=== PATIENT | male | born 1955 | race American Indian/Alaskan Native ===

== ENCOUNTER 2016-07-20 17:50 | Emergency (ER) | payer BC ==
[2016-07-20 18:30] LABS: Hematocrit 37.5 % (35.5-45.6); Hemoglobin 11.8 gm/dl (11.8-15.2); Mean Corpuscular HGB Conc 32 % (32-34); Mean Corpuscular Volume 71 fl (84-94); Red Blood Count 5.31 M/mm3 (3.65-5.03); Red Cell Distribution Width 16.3 % (13.2-15.2); White Blood Count 6.2 K/mm3 (4.5-11.0)
[2016-07-20 18:32] LABS: Mean Corpuscular Hemoglobin 22 pg (28-32)
[2016-07-20 18:40] LABS: Bilirubin,Urine NEG (Negative); Blood,Urine NEG (Negative); Ketones,Urine NEG (Negative); Leukocyte Esterase,Urine NEG (Negative); Mucus,Urine FEW /HPF; Nitrite,Urine NEG (Negative); Protein,Urine <15 mg/dL mg/dL (Negative)
[2016-07-20 18:51] LABS: Anion Gap 15 mmol/L; BUN/Creatinine Ratio 13.63; Blood Urea Nitrogen 15 mg/dL (9-20); Calcium 8.5 mg/dL (8.4-10.2); Carbon Dioxide 23 mmol/L (22-30); Chloride 103.8 mmol/L (98-107); Glucose 122 mg/dL (75-100); Potassium 4.1 mmol/L (3.6-5.0); Sodium 138 mmol/L (137-145)
[2016-07-20 18:58] LABS: Platelet Count 129 K/mm3 (140-440)
[2016-07-20] MEDS ORDERED: MORPHINE IV ONE (21:18)
[2016-07-20] MEDS ORDERED: VALIUM IV ONE (21:18)
--- NOTE | 2016-07-20 21:54 | Emergency Department Report ---
HPI - General Chief Complaint: Back Pain/Injury Time Seen by Provider: 07/20/16 19:51 - HPI HPI: The patient is a 61-year-old male who presents for evaluation of back pain. The patient has a history of chronic back pain for greater than the past 10 years. The patient reports recurrence of his back pain one week ago, concentrated to the right lower back, 9/10 in severity, aching in quality, exacerbated with standing up or bending over. The patient denies trauma to the back prior to onset of his symptoms 1 week ago, fall, fever, chills, night sweats, saddle anesthesia, paresthesias, numbness or tingling in the legs, leg weakness, urine or bowel incontinence or retention, difficulty ambulating, or other focal neurological deficits. ED Past Medical Hx - Past Medical History Previous Medical History?: No - Surgical History Additional Surgical History: L-5,L6 fusion - Social History Smoking Status: Never Smoker Substance Use Type: None - Medications Home Medications: Home Medications Medication Instructions Recorded Confirmed Last Taken Type HYDROcodone/APAP 7.5-325 [[place] 1 each PO Q8HR PRN #12 tablet 07/20/16 Unknown Rx 7.5-325 mg TAB] Ibuprofen [Motrin] 800 mg PO Q8HR PRN #15 tablet 07/20/16 Unknown Rx ED Review of Systems ROS: Stated complaint: LOWER FLANK PAIN Other details as noted in HPI Constitutional: denies: fever ENT: denies: throat or neck pain Respiratory: denies: cough, shortness of breath Cardiovascular: denies: chest pain Endocrine: denies unexplained weight loss or gain Gastrointestinal: denies: abdominal pain, nausea Genitourinary: denies: dysuria Musculoskeletal: reports back pain denies: leg swelling Skin: denies: rash Neurological: denies: headache Hematological/Lymphatic: denies: easy bleeding or easy bruising Psych: denies sadness or hopelessness Physical Exam - Physical Exam Vital Signs: Vital Signs 07/20/16 18:10 Temperature 97.8 F Pulse Rate 83 Respiratory 20 Rate Blood Pressure 151/90 O2 Sat by Pulse 98 Oximetry Physical Exam: General: well-nourished, well-developed, no acute distress Head: Normocephalic, atraumatic Eyes: normal sclera ENT: Mucous membranes are pink and moist Neck: trachea midline, neck supple, No neck stiffness, no cervical adenopathy Respiratory: Breath sounds equal bilaterally, no wheezing, rales, or rhonchi Cardio: S1 and S2 present, no murmurs, rubs, gallops, capillary refill is brisk Abdomen: Normoactive bowel sounds, soft abdomen, no tenderness Chest WALL/Back: Tenderness to palpation present to the right lower thoracic paraspinal musculature, no midline tenderness, normal active range of motion at the hip intact, no spinous step-off or obvious deformity, ipsi-lateral and contralateral straight leg raise tests are negative. On extremity testing, compartments are soft and pliable, no obvious gross motor strength deficit, 5+ motor strength, including extension of the great toe bilaterally, no muscular atrophy, spasticity, fasciculations, or clonus, no obvious gross sensation deficit including web space between 1st and 2nd toes, reflexes 2+ & symmetric on DTR testing at the knee and ankle joints, distal pulses intact. Musc: No pitting edema Skin: No rash Neuro: no facial drooping, normal speech Psych: Normal affect ED Course Vital Signs 07/20/16 18:10 Temperature 97.8 F Pulse Rate 83 Respiratory 20 Rate Blood Pressure 151/90 O2 Sat by Pulse 98 Oximetry ED Medical Decision Making - Lab Data Result diagrams: 07/20/16 18:16 07/20/16 18:16 - Medical Decision Making The patient was seen and examined by myself. The patient is placed on a peeler operator and continuous pulse ox. On initial evaluation, the patient was found to be in no distress. No findings on exam concerning for cauda equina syndrome, spinal stenosis, or epidural abscess . As the patient has no midline tenderness on exam, no neuro deficits, and no findings concerning for emergent etiology of their back pain, and as patient states his back pain is consistent with recurrence of long-standing previous back pain, imaging will not be obtained at this time. The patient is given a IV dose of Valium and morphine for his back pain. The patient was reevaluated and reported that their pain was significantly improved. The patient is stable for discharge with outpatient follow-up. The patient is given follow-up and return instructions. The patient expressed understanding and agreed with the plan. The patient is discharged in stable condition. Critical care attestation.: If time is entered above; I have spent that time in minutes in the direct care of this critically ill patient, excluding procedure time. ED Disposition Clinical Impression: Acute bilateral low back pain without sciatica Disposition: DISCHARGED TO HOME OR SELFCARE Is pt being admited?: No Does the pt Need Aspirin: No Condition: Stable Instructions: Low Back Strain (ED), Acute Low Back Pain (ED), Back Pain (ED) Additional Instructions: Do not take more than the prescribed dose of norco/pain medicine, or combine or take the pain medicine prescribed to you today with other pain medicine, sleeping medicine, ativan, valium, other sedatives, or with alcohol, as doing so may cause central nervous system sedation and respiratory depression, and potentially cause you to stop breathing and . Additionally, do not drive a vehicle, operate heavy machinery, or engage in any activity that would cause harm to yourself or others after taking the pain medicine prescribed to you. Prescriptions: HYDROcodone/APAP 7.5-325 [[place] 7.5-325 mg TAB] 1 each PO Q8HR PRN #12 tablet PRN Reason: Pain Ibuprofen [Motrin] 800 mg PO Q8HR PRN #15 tablet PRN Reason: Pain Referrals: PRIMARY CARE, [Primary Care Provider] - 3-5 Days Forms: Work/School Release Form(ED), Work/School Release Form Time of Disposition: 21:57
[2016-07-20 22:52] VITALS: BP 176/69
== END 2016-07-20 22:52 | disposition home or self-care (01) ==
LOC: ED 17:50
DX: M54.5 Low back pain (principal)
CPT/HCPCS: 36415; 80048; 81001; 85027; 96374; 96375; 99284; J2270; J3360